=== PATIENT | male | born 1975 | race Caucasian/White ===

== ENCOUNTER 2017-06-17 13:27 | Emergency (ER) | payer OTHER ==
--- NOTE | 2017-06-17 14:07 | PHYS DOC ---
General Chief Complaint: HEADACHE Stated Complaint: HEADACHE Time Seen by MD: 13:39 Source: patient Exam Limitations: no limitations Problems: History of Present Illness Initial Comments Patient is a 42-year-old male brought to the ED in police custody for vision changes. Patient states that at 11:30 AM today he developed sudden onset left eye vision changes. Patient denies having a headache along with these vision changes, he' s complaining of intermittent double vision, he has noticed he is unable to look medially or superomedially. His left eye is oriented down and outward which she states is new for him. He complains also of some mild decreased ability to taste. He denies other focal neurologic deficit, no arm or leg weakness no dysphasia. Patient has no medical history he denies history of alcohol tobacco or illicit substance abuse. Symptoms occurred at rest patient denies concomitant neck pain chest pain dyspnea nausea vomiting malaise fever chills or other focal neurologic deficit. Timing/Duration: other (11:30 AM today) Severity: severe Modifying Factors: improves with other Associated Symptoms: headaches (this past month is not currently), other Allergies: Coded Allergies: No Known Drug Allergies (Unverified , 06/17/17) Past Medical History Medical History: no pertinent history Surgical History: noncontributory Social History Smoker: non-smoker Alcohol: none Drugs: none Review of Systems Constitutional: denies chills, denies diaphoresis, denies fever, denies malaise EENTM: see HPI, denies eye pain, denies tearing, double vision, denies ear pain , denies ear discharge, denies nose pain, denies nose congestion, denies throat pain, denies mouth pain Respiratory: denies cough, denies shortness of breath, denies wheezing Cardiovascular: denies chest pain, denies palpitations, denies syncope Gastrointestinal: denies abdominal pain, denies diarrhea, denies nausea, denies vomiting Musculoskeletal: denies back pain, denies joint swelling, denies neck pain Psychiatric/Neurological: see HPI Hematologic/Lymphatic: denies blood clots, denies easy bleeding, denies easy bruising Physical Exam General Appearance: WD/WN, no apparent distress Eyes: right eye normal inspection, left eye other (left eye is beats atrophic at rest oriented downward and outward with mild ptosis of the upper lid. There is cranial nerve III deficit as no medial rectus for superior rectus muscle activity is noted on exam.), bilateral eye PERRL Ear, Nose, Throat: hearing grossly normal, normal ENT inspection, normal pharynx Neck: non-tender, supple Respiratory: normal breath sounds, no respiratory distress Cardiovascular: normal peripheral pulses, regular rate, rhythm Gastrointestinal: non tender, soft Back: no CVA tenderness, no vertebral tenderness Extremities: normal range of motion, non-tender, normal inspection Neurologic/Psychiatric: no motor/sensory deficits, alert, normal mood/affect, oriented x 3, other (aside from the cranial nerve III palsy the remainder of cranial nerves appear to be intact) Skin: normal color, warm/dry Orders, Labs, Meds EKG: Normal sinus rhythm 74 bpm, nonspecific T contour abnormalities no STEMI. Interpreted by Dr. Jackson. PATIENT: VIKTORIYA QUINTANILLA ACCOUNT: [id number] : 1975 LOCATION: ER AGE: 42 SEX: M EXAM [id number] STATUS: PRE ER ORD. PHYSICIAN: JAIME JACKSON DO REASON: HEADACHE PROCEDURE: CT HEAD WO CONTRAST; CT MAXILLOFACIAL WO CONTRAST CT head and maxillofacial without contrast 06/17/2017 Indication: Vision change left eye and numbness around the mouth Comparison: None available Technique: Multiple axial noncontrast CT images of the head were obtained from the skull base through the vertex. Multiple axial noncontrast CT images of the maxillofacial structures were obtained. Coronal and sagittal reformats are provided. Findings: Head: The ventricles, sulci and basal cisterns are within normal limits. Curtis-white matter differentiation is normal. There is no acute intracranial hemorrhage. There is no mass, mass effect or midline shift. Posterior fossa is within normal limits. Sellar and suprasellar cistern appear normal. Maxillofacial: Orbits are normal in appearance. Paranasal sinuses are well aerated. Mastoid air cells are well aerated. Scalp and calvaria are normal. Maxilla and mandible are intact." Appear normal. Temporomandibular joints are intact. Pterygoid plates are intact. Stylomastoid foramen is normal. Skull base and neural foramen are normal in appearance. Impression: There is no acute intracranial hemorrhage. Normal noncontrast CT maxillofacial. PQRS Compliance Statement: One or more of the following individualized dose reduction techniques were utilized for this examination: 1. Automated exposure control 2. Adjustment of the mA and/or kV according to patient size 3. Use of iterative reconstruction technique DICTATED AND SIGNED BY: MANDO SHORT MD DATE: 06/17/171516 CC: JAIME JACKSON DO ~ PATIENT: VIKTORIYA QUINTANILLA ACCOUNT: [id number] : 1975 LOCATION: ER AGE: 42 SEX: M EXAM [id number] STATUS: PRE ER ORD. PHYSICIAN: JAIME JACKSON DO REASON: HEADACHE PROCEDURE: CT HEAD WO CONTRAST; CT MAXILLOFACIAL WO CONTRAST CT head and maxillofacial without contrast 06/17/2017 Indication: Vision change left eye and numbness around the mouth Comparison: None available Technique: Multiple axial noncontrast CT images of the head were obtained from the skull base through the vertex. Multiple axial noncontrast CT images of the maxillofacial structures were obtained. Coronal and sagittal reformats are provided. Findings: Head: The ventricles, sulci and basal cisterns are within normal limits. Curtis-white matter differentiation is normal. There is no acute intracranial hemorrhage. There is no mass, mass effect or midline shift. Posterior fossa is within normal limits. Sellar and suprasellar cistern appear normal. Maxillofacial: Orbits are normal in appearance. Paranasal sinuses are well aerated. Mastoid air cells are well aerated. Scalp and calvaria are normal. Maxilla and mandible are intact." Appear normal. Temporomandibular joints are intact. Pterygoid plates are intact. Stylomastoid foramen is normal. Skull base and neural foramen are normal in appearance. Impression: There is no acute intracranial hemorrhage. Normal noncontrast CT maxillofacial. PQRS Compliance Statement: One or more of the following individualized dose reduction techniques were utilized for this examination: 1. Automated exposure control 2. Adjustment of the mA and/or kV according to patient size 3. Use of iterative reconstruction technique DICTATED AND SIGNED BY: MANDO SHORT MD DATE: 06/17/171516 CC: JAIME JACKSON DO ~ PATIENT: VIKTORIYA QUINTANILLA ACCOUNT: [id number] : 1975 LOCATION: ER AGE: 42 SEX: M EXAM STATUS: PRE ER ORD. PHYSICIAN: JAIME JACKSON DO REASON: CN palsy PROCEDURE: CHEST AP ONLY Chest radiograph 06/17/2017 3:56 PM Indication: Chest pain Comparison: None available Technique: Single frontal view of the chest is provided. Findings: Cardiomediastinal silhouette is within normal limits. No pleural effusions, pulmonary vascular congestion or pneumothorax. The lungs are clear. Osseous structures are normal. Impression: No acute cardiopulmonary process. DICTATED AND SIGNED BY: MANDO SHORT MD DATE: 06/17/17 1544 CC: JAIME JACKSON DO ~ 1350: I discussed the patient with on-call neurologist Dr. Wolf. After thorough discussion of the patient's findings from today he recommends further evaluation at [facility]. He recommends MRI with IV contrast. [place] is paging traffic operations engineer hospitalist at [facility] to arrange patient transfer. 1355: I discussed findings with the patient and need for transfer to [facility] the patient is agreeable. He denies any new or progressive symptoms. 1629: I discussed the patient with Dr Blackburn, traffic operations engineer hospitalist at [facility]. She agrees to accept the patient for MRI with contrast today and neurologic consultation today. Impression: Left sided cranial nerve III palsy Departure Time of Disposition: 16:30 Disposition: 02 XFER SHT-TRM HOSP Diagnosis: Cranial nerve III palsy Condition: STABLE Additional Instructions: EMS transfer to [facility] Dr Blackburn is accepting physician. JAIME JACKSON DO Jun 17, 2017 14:07
[2017-06-17 14:25] LABS: BASO # 0.1 x10^3/uL (0.0-0.2); BASO % 1 % (0-3); EOS # 0.1 x10^3/uL (0.0-0.7); EOS % 1 % (0-3); HEMATOCRIT 45.6 % (39.0-53.0); HEMOGLOBIN 16.2 g/dL (13.0-17.5); LYMPH # 1.3 x10^3/uL (1.0-4.8); LYMPH % 25 % (24-48); MEAN CORPUSCULAR HEMOGLOBIN 30 pg (25-35); MEAN CORPUSCULAR HGB CONC 36 g/dL (31-37); MEAN CORPUSCULAR VOLUME 85 fL (79-100); MONO # 0.5 x10^3/uL (0.0-1.1); MONO % 9 % (0-9); NEUT # 3.2 x10^3uL (1.8-7.7); NEUT % 64 % (31-73); PLATELET COUNT 239 x10^3/uL (140-400); RED BLOOD COUNT 5.36 x10^6/uL (4.30-5.70); WHITE BLOOD COUNT 5.1 x10^3/uL (4.0-11.0)
[2017-06-17 14:39] LABS: ALBUMIN 4.1 g/dL (3.4-5.0); ALBUMIN/GLOBULIN RATIO 1.3 (1.0-1.7); C REACTIVE PROTEIN 0.9 mg/L (0-3.3); CALCIUM 9.2 mg/dL (8.5-10.1); CREATININE 0.9 mg/dL (0.7-1.3); GFR 93.5; POTASSIUM 4.5 mmol/L (3.5-5.1); TOTAL BILIRUBIN 0.7 mg/dL (0.2-1.0); TOTAL PROTEIN 7.2 g/dL (6.4-8.2)
[2017-06-17 15:02] LABS: BARBITURATES NEG (NEG); BENZODIAZEPINES NEG (NEG); CANNABINOIDS NEG (NEG); COCAINE NEG (NEG); METHADONE NEG (NEG); OPIATES NEG (NEG); PHENCYCLIDINE NEG (NEG)
[2017-06-17 15:03] LABS: AMPHETAMINE/METHAMPHETAMINE NEG (NEG)
--- NOTE | 2017-06-17 15:04 | EKG ---
[address] [address] Test Date: 2017-06-17 Test Time: 14:07:06 Pat Name: VIKTORIYA QUINTANILLA Department: Room: Gender: M Freezer Operator: DEVON : 1975 Requested By: JAIME JACKSON Order Number: [id number] Reading MD: Gerson Cramer Measurements Intervals [place] Rate: 74 P: 34 MN: 156 QRS: 56 QRSD: 84 T: 25 QT: 376 QTc: 418 Interpretive Statements SINUS RHYTHM Electronically Signed On 06-18-2017 13:20:25 CDT by Gerson Cramer
--- NOTE | 2017-06-17 15:26 | RAD ---
CT head and maxillofacial without contrast 06/17/2017 Indication: Vision change left eye and numbness around the mouth Comparison: None available Technique: Multiple axial noncontrast CT images of the head were obtained from the skull base through the vertex. Multiple axial noncontrast CT images of the maxillofacial structures were obtained. Coronal and sagittal reformats are provided. Findings: Head: The ventricles, sulci and basal cisterns are within normal limits. Curtis-white matter differentiation is normal. There is no acute intracranial hemorrhage. There is no mass, mass effect or midline shift. Posterior fossa is within normal limits. Sellar and suprasellar cistern appear normal. Maxillofacial: Orbits are normal in appearance. Paranasal sinuses are well aerated. Mastoid air cells are well aerated. Scalp and calvaria are normal. Maxilla and mandible are intact." Appear normal. Temporomandibular joints are intact. Pterygoid plates are intact. Stylomastoid foramen is normal. Skull base and neural foramen are normal in appearance. Impression: There is no acute intracranial hemorrhage. Normal noncontrast CT maxillofacial. PQRS Compliance Statement: One or more of the following individualized dose reduction techniques were utilized for this examination: 1. Automated exposure control 2. Adjustment of the mA and/or kV according to patient size 3. Use of iterative reconstruction technique
[2017-06-17 15:33] LABS: SEDIMENTATION RATE 1 (0-15)
--- NOTE | 2017-06-17 15:46 | RAD ---
Chest radiograph 06/17/2017 3:56 PM Indication: Chest pain Comparison: None available Technique: Single frontal view of the chest is provided. Findings: Cardiomediastinal silhouette is within normal limits. No pleural effusions, pulmonary vascular congestion or pneumothorax. The lungs are clear. Osseous structures are normal. Impression: No acute cardiopulmonary process.
[2017-06-17 16:25] VITALS: BP 110/69
== END 2017-06-17 18:30 | disposition short-term general hospital (02) ==
LOC: ER 13:27 → EEVIPCON 13:27 → ER 18:30
DX: H49.02 Third [oculomotor] nerve palsy, left eye (principal)
CPT/HCPCS: 36415; 70450; 70486; 71010; 80053; 80307; 83605; 84484; 85025; 85379; 85610; 85651; 85730; 86140; 93005; 99285-25; G0479